=== PATIENT | female | born 1990 ===

== ENCOUNTER 2019-04-25 20:00 | Emergency (ER) | payer OTHER ==
[2019-04-25 20:17] VITALS: BP 129/87
--- NOTE | 2019-04-25 20:47 | UC ---
Eye Complaint HPI - HPI Summary HPI Summary: Started w/ L lower eyelid swelling that started 45 min. ago but does not know why. she was around a few young children a few days ago. denies pain w/ eye movement, fever, neck pain, discharge or any pain . denies food allergies or other swelling or rash. She is not sure this is related but did have 1 episode of diarrhea. - History of Current Complaint Chief Complaint: UCEye Stated Complaint: EYES SWELLING Time Seen by Provider: 04/25/19 20:02 Hx Obtained From: Patient Hx Last Menstrual Period: 04/25/19 Onset/Duration: Sudden Onset Pain Intensity: 0 Location of Injury: Eye Lid (lower) Aggravating Factor(s): Nothing Alleviating Factor(s): Nothing - Allergies/Home Medications Allergies/Adverse Reactions: Allergies Allergy/AdvReac Type Severity Reaction Status Date / Time seasonal allergies Allergy Unknown Uncoded 04/25/19 20:17 Reaction Details Home Medications: Home Medications Erythromycin OPTH OINT* [Erythromycin 0.5% OPTH OINT*] 1 applic BOTH EYES TID 7 Days #1 ophth.oint 04/25/19 [Rx] Escitalopram * [Lexapro 5 mg (NF)] 5 mg PO DAILY 04/25/19 [History Confirmed ] predniSONE [Prednisone 20 MG TAB] 20 mg PO DAILY 5 Days #5 tablet 04/25/19 [Rx] PMH/Surg Hx/FS Hx/Imm Hx Previously Healthy: Yes Psychological History: Depression - Surgical History Surgical History: None - Family History Known Family History: Positive: Non-Contributory - Social History Alcohol Use: Weekly Alcohol Amount: once Substance Use Type: Marijuana Smoking Status (MU): Never Smoked Tobacco Review of Systems All Other Systems Reviewed And Are Negative: Yes Constitutional: Negative: Fever, Chills Skin: Negative: Rash, Bruising Eyes: Positive: Other - L eyelid swelling, R eyelid swelling but less. Negative : Blurred Vision, Diplopia, Drainage, Eye Redness, Photophobia ENT: Negative: Sore Throat, Sinus Congestion Respiratory: Negative: Cough Gastrointestinal: Positive: Diarrhea - 1 episode Genitourinary: Negative: Dysuria Physical Exam Triage Information Reviewed: Yes Appearance: Well-Appearing Vital Signs: Initial Vital Signs Temp 98.2 F 04/25/19 20:04 Pulse 83 02/28/20 20:04 Resp 12 04/25/19 20:04 BP 129/87 04/25/19 20:04 Pulse Ox 100 04/25/19 20:04 Vital Signs Reviewed: Yes Eyes: Positive: Conjunctiva Clear, Other: - L lower lid nontender, non erythematous but moderately swollen. upper L lid unremarkable. R eye unremarkable.. Negative: Conjunctiva Inflamed, Discharge Neurological: Positive: Alert Skin: Negative: Rashes Eye Complaint Course/Dx - Course Course Of Treatment: Moderate L lower eyelid swelling that was not tender or red on exam. Suspect some sort of reaction to either make up or other offending agent. There is slight chance this is infectious so will tx for that as well. vitals are good. Not clear if diarrhea is related. - Differential Dx/Diagnosis Differential Diagnosis/HQI/PQRI: Conjunctivitis, Other Provider Diagnosis: Swollen eyelid Discharge ED - Sign-Out/Discharge Documenting (check all that apply): Patient Departure All imaging exams completed and their final reports reviewed: No Studies - Discharge Plan Condition: Good Disposition: HOME Prescriptions: Erythromycin OPTH OINT* [Erythromycin 0.5% OPTH OINT*] 1 applic BOTH EYES TID 7 Days #1 ophth.oint predniSONE [Prednisone 20 MG TAB] 20 mg PO DAILY 5 Days #5 tablet Patient Education Materials: General Allergic Reaction (ED) Referrals: No Primary Care Phys,NOPCP [Primary Care Provider] - Additional Instructions: If worsening please go to the Emergency Dept This may be the beginning of conjunctivitis vs. a reaction to something that touched your eye. - Billing Disposition and Condition Condition: GOOD Disposition: Home
== END 2019-04-25 20:40 | disposition home or self-care (01) ==
LOC: UCEAST 20:00
DX: H57.89 Other specified disorders of eye and adnexa (principal); F32.9 Major depressive disorder, single episode, unspecified; R19.7 Diarrhea, unspecified; Z91.09 Other allergy status, other than to drugs and biological substances; Z79.899 Other long term (current) drug therapy
CPT/HCPCS: 99202; G0463; J7512